=== PATIENT | male | born 1975 | race Caucasian/White ===

== ENCOUNTER 2018-05-23 18:08 | Emergency (ER) | payer SELFPAY ==
[~2018-05-23 18:08] MED LIST: ISOVUE-370 76%-LOCM 1 ML ONE
[2018-05-23 18:58] LABS: #Basophils 0.1 thou/uL (0.0-0.2); #Eosinphils 0.2 thou/uL (0.0-0.7); #Lymphocytes 1.4 thou/uL (1.20-3.40); #Monocytes 0.5 thou/uL (0.11-0.59); #Neutrophils 4.1 thou/uL (1.40-6.50); %Basophils 0.8 % (0.0-1.0); %Eosinophils 2.8 % (0.0-10.0); %Lymphocytes 22.8 % (21.0-51.0); %Monocytes 7.2 % (0.0-10.0); %Neutrophils 66.4 % (42.0-75.0); Hemoglobin 13.9 g/dL (14.0-18.0); Mean Corpuscular HGB CONC 33.7 g/dL (32.0-36.0); Mean Corpuscular Hemoglobin 29.8 pg (27.0-31.0); Mean Corpuscular Volume 88.3 fL (78.0-98.0); Mean Platelet Volume 6.5 fL (7.4-10.4); Platelet Count 227 thou/uL (130-400); RBC Distribution Width 12.5 % (11.5-14.5); Red Blood Cell (RBC) Count 4.65 mill/uL (4.70-6.10); White Blood Cell (WBC) Count 6.2 thou/uL (4.8-10.8)
[2018-05-23] MEDS ORDERED: Ondansetron PF 4 MG/2 ML Vial ONE (19:03)
[2018-05-23] MEDS ORDERED: Morphine 4 MG/ML VIAL ONE (19:03)
[2018-05-23 19:19] LABS: ALT (SGPT) 24 U/L (8-55); AST (SGOT) 28 U/L (5-34); Alkaline Phosphatase 89 U/L (40-150); Anion Gap 8 mmol/L (10-20); BUN (Urea Nitrogen) 15 mg/dL (8.9-20.6); Bilirubin, Total 0.4 mg/dL (0.2-1.2); Calc. Creatinine Clearance 0 mL/min (70-130); Calcium 9.4 mg/dL (7.8-10.44); Carbon Dioxide 29 mmol/L (22-29); Chloride 105 mmol/L (98-107); Estimated GFR-MDRD 77; Globulin 2.8 g/dL (2.4-3.5); Glucose 107 mg/dL (70-105); Protein, Total 6.8 g/dL (6.0-8.3); Sodium 138 mmol/L (136-145)
[2018-05-23] MEDS ORDERED: Acetaminophen 500 MG TAB ONE (19:25)
--- NOTE | 2018-05-23 20:23 | CT ---
CT BRAIN PERFORMED WITHOUT CONTRAST ENHANCEMENT: HISTORY: Head injury status post fall. FINDINGS: The ventricular and cisternal system is within normal limits. There are no signs of intracerebral he morrhage or extraaxial fluid collections. The mastoid air cells are clear. There is extensive mucos al disease in the right ethmoid and maxillary sinus and some changes within the right sphenoid sinus. IMPRESSION: No acute intracranial abnormalities. POS: [facility]
--- NOTE | 2018-05-23 20:25 | CT ---
CT CERVICAL SPINE PERFORMED WITHOUT CONTRAST ENHANCEMENT: HISTORY: Fall with neck injury. FINDINGS: Vertebral bodies are normal in height. Disk spaces all appear relatively well preserved with some mi nimal osteophytic change. The facets are in normal alignment. There is no evidence of any significa nt canal or foraminal stenosis. There is no CT evidence for fracture. The lung apices are clear. IMPRESSION: No CT evidence of fracture of the cervical spine. POS: [facility]
--- NOTE | 2018-05-23 20:43 | CT ---
CT CHEST AND ABDOMEN AND PELVIS AND THORACIC SPINE AND LUMBAR SPINE: 05/23/2018 HISTORY: Fall. Trauma. Pain. COMPARISON: None. TECHNIQUE: Axial CT imaging at 5 mm intervals, from the thoracic inlet through the pubic symphysis, with IV cont rast. Coronal and sagittal reformatted imaging of chest, abdomen, pelvis, thoracic spine, and lumbar spine obtained. FINDINGS: No axillary, hilar, or mediastinal adenopathy. No pleural, pericardial, or mediastinal fluid. Vascu lar structures of the chest appear patent. No pneumothorax on either side. The lung parenchyma demonstrates no acute abnormality on either side . There is a nodule in the middle lobe, on axial image 35, measuring approximately 4 mm. There is a pu lmonary nodule, measuring 3 mm, in the right lower lobe, on axial image 26. Review of the osseous structures of the chest demonstrate no displaced fracture. There is no free intraperitoneal air or fluid evident. The liver, gallbladder, spleen, pancreas, adrenal glands, and kidneys are unremarkable. Limited assessment of the bowel is grossly unremarkable. Vascular structures of the abdomen and pelvis appear patent with no lymphadenopathy noted in the abdo men or pelvis. Osseous structures of the abdomen and pelvis demonstrate a sclerotic lesion within the left iliac bon e, measuring 7 mm, likely representing a benign bone island, in the absence of known malignancy. Sim ilar sclerotic focus seen in the proximal left femur, on axial image 134. Dedicated CT examination of the thoracic spine demonstrates no acute fracture or dislocation. Dedica noah CT of the lumbar spine demonstrates no evidence for acute fracture or dislocation. There is an old anterior wedge compression fracture of the T8 vertebral body, which was noted on prio r CT examination of the thoracic spine, performed on 12/06/2005. IMPRESSION: Incidental findings as detailed above. No acute findings are seen. POS: [facility]
[2018-05-23] MEDS ORDERED: Ketorolac Tromethamine 30 MG/ML VIAL ONE (20:52)
== END 2018-05-23 21:12 | disposition home or self-care (01) ==
LOC: ERS 18:08
DX: S80.812A Abrasion, left lower leg, initial encounter (principal); S30.1XXA Contusion of abdominal wall, initial encounter; F17.210 Nicotine dependence, cigarettes, uncomplicated; W17.89XA Other fall from one level to another, initial encounter
CPT/HCPCS: 70450; 71260; 72125; 74177; 80053; 85025; 96361; 96374; J1885; J2270; J2405

== ENCOUNTER 2018-06-27 22:58 | Emergency (ER) | payer SELFPAY ==
[2018-06-27 23:46] LABS: #Basophils 0.1 thou/uL (0.0-0.2); #Eosinphils 0.2 thou/uL (0.0-0.7); #Lymphocytes 1.5 thou/uL (1.20-3.40); #Monocytes 0.5 thou/uL (0.11-0.59); #Neutrophils 3.6 thou/uL (1.40-6.50); %Basophils 1.3 % (0.0-1.0); %Eosinophils 2.9 % (0.0-10.0); %Lymphocytes 26.2 % (21.0-51.0); %Monocytes 8.4 % (0.0-10.0); %Neutrophils 61.2 % (42.0-75.0); Mean Corpuscular HGB CONC 33.6 g/dL (32.0-36.0); Mean Corpuscular Hemoglobin 29.4 pg (27.0-31.0); Mean Corpuscular Volume 87.7 fL (78.0-98.0); Mean Platelet Volume 6.4 fL (7.4-10.4); Platelet Count 201 thou/uL (130-400); RBC Distribution Width 12.4 % (11.5-14.5); Red Blood Cell (RBC) Count 5.11 mill/uL (4.70-6.10); White Blood Cell (WBC) Count 5.8 thou/uL (4.8-10.8)
--- NOTE | 2018-06-27 23:46 | RAD ---
CHEST ONE VIEW PORTABLE: HISTORY: A 43-year-old male with a history of chest pain. COMPARISON: 10/02/2015 FINDINGS: Heart size is within normal limits. Lungs are clear. No pneumonia, edema, pleural effusion, or othe r acute process. There is some nonspecific cortical irregularity of the medial proximal left humeral diaphysis, probably related to old trauma. IMPRESSION: No acute intrathoracic disease. POS: [facility]
[2018-06-28 00:09] LABS: ALT (SGPT) 32 U/L (8-55); AST (SGOT) 26 U/L (5-34); Alkaline Phosphatase 106 U/L (40-150); Anion Gap 14 mmol/L (10-20); BUN (Urea Nitrogen) 14 mg/dL (8.9-20.6); Bilirubin, Total 0.2 mg/dL (0.2-1.2); CK (CPK) 175 U/L (30-200); Calc. Creatinine Clearance 0 mL/min (70-130); Calcium 9.2 mg/dL (7.8-10.44); Carbon Dioxide 26 mmol/L (22-29); Chloride 105 mmol/L (98-107); Estimated GFR-MDRD 75; Glucose 103 mg/dL (70-105); Sodium 141 mmol/L (136-145)
[2018-06-28 00:15] LABS: Acetaminophen Less than 6.0 mcg/mL (10.0-30.0); Alcohol Less than 10 mg/dL (Less than 10); Salicylate Less than 8.0 mg/dL (15.0-30.0)
[2018-06-28 01:01] LABS: Amphetamine Detected (NotDetected); Barbiturates Screen Not Detected (NotDetected); Benzodiazepine Screen Not Detected (NotDetected); Cocaine Metabolite Screen Not Detected (NotDetected); Medtox Control Line Valid? VALID (VALID); Medtox Reader # READER 1; Methadone Not Detected (NotDetected); Methamphetamine Not Detected (NotDetected); Opiate Screen Not Detected (NotDetected); Oxycodone Screen Not Detected (NotDetected); Phencyclidine (PCP) Not Detected (NotDetected); THC/Cannabinoid Screen Not Detected (NotDetected); Tricyclic Screen Not Detected (NotDetected)
== END 2018-06-28 04:03 | disposition home or self-care (01) ==
LOC: ERS 22:58
DX: R07.2 Precordial pain (principal); F17.210 Nicotine dependence, cigarettes, uncomplicated; Z71.6 Tobacco abuse counseling
CPT/HCPCS: 36415; 71045; 80053; 80306; 80307; 82550; 84484; 85025; 93005; 94760; 99406

== ENCOUNTER 2018-09-04 15:56 | Emergency (ER) | payer SELFPAY ==
[2018-09-04] MEDS ORDERED: HYDROcodone/Acetaminophen 5/325 mg Tablet ONE (16:12)
--- NOTE | 2018-09-04 16:30 | RAD ---
LEFT INDEX FINGER THREE VIEWS: Indication: Finger injury with table saw. Comparison: None. FINDINGS: There is partial amputation of the distal tuft of the left index finger. There is soft tissue amputat ion of the distal tip of the left index finger. IMPRESSION: Partial traumatic amputation of the distal tuft of the left index finger. POS: [facility]
[2018-09-04] MEDS ORDERED: CEFAZOLIN 1 GM VIAL ONE ×2 (16:46→16:50)
[2018-09-04] MEDS ORDERED: Lidocaine 1% PF 5 ML VIAL ONE (16:48)
[2018-09-04] MEDS ORDERED: Water For Inject, Bacteriostat 30 ML ONE (16:51)
[2018-09-04] MEDS ORDERED: Sterile Water 10 ML ONE (16:53)
== END 2018-09-04 17:28 | disposition home or self-care (01) ==
LOC: ERS 15:56
DX: S68.121A Partial traumatic metacarpophalangeal amputation of left index finger, initial encounter (principal); F17.210 Nicotine dependence, cigarettes, uncomplicated; W27.0XXA Contact with workbench tool, initial encounter
CPT/HCPCS: 90471; 96372; A4216; J0690; J2001

== ENCOUNTER 2018-10-17 13:58 | Emergency (ER) | payer SELFPAY ==
[2018-10-17] MEDS ORDERED: ISOVUE-370 76%-LOCM 1 ML ONE (15:03)
--- NOTE | 2018-10-17 15:09 | RAD ---
RIGHT LEG 2 VIEWS: Date: 10/17/18 HISTORY: Injury, laceration right cruz, right leg pain. FINDINGS/IMPRESSION: The right tibia and fibula are intact. No radiopaque foreign body is seen. POS: [facility]
[2018-10-17] MEDS ORDERED: Ondansetron PF 4 MG/2 ML Vial ONE (15:15)
[2018-10-17] MEDS ORDERED: Morphine 4 MG/ML VIAL ONE (15:15)
--- NOTE | 2018-10-17 15:32 | CT ---
CT Brain WO Con: 10/17/2018 2:45 PM CLINICAL HISTORY: Injury, pain. COMPARISON: None. FINDINGS: Hemorrhage: None. Ventricular system: Normal in size and morphology for the patient's age. Cerebral parenchyma: Small hypodensity at the inferior right lentiform nucleus may relate to a periva scular space. Midline shift: None. Mass: No mass effect. Calvarium: Normal. Visualized Paranasal sinuses: Decreased pneumatization of right mastoid air cells. IMPRESSION: No acute intracranial abnormalities.
[2018-10-17] MEDS ORDERED: Lidocaine 1% w/Epinephrine 1:100K 20 ML VIAL ONE (15:38)
--- NOTE | 2018-10-17 15:43 | CT ---
CT CERVICAL SPINE WITH CORONAL AND SAGITTAL REFORMATIONS: HISTORY: A 43-year-old male with injury, neck pain. FINDINGS: Comparison is made with the exam of 05/23/2018. No fracture or subluxation is seen. No facet malalignment is identified. Vertebral body heights are maintained. POS: [facility]
--- NOTE | 2018-10-17 15:48 | CT ---
CT OF THE CHEST, ABDOMEN AND PELVIS WITH IV CONTRAST INDICATION: History of fall approximately 1658 with right lower leg injury COMPARISON: CT the chest abdomen and pelvis dated May 23, 2018 and December 06, 2005 FINDINGS: CHEST: Lungs:No focal contusion is evident. Sub-4 mm pulmonary nodules within the right upper lobe and right middle lobes are stable. Calcified granuloma the right lower lobe is stable. Heart and great vessels:No acute traumatic injury seen. Pleural space: No pneumothorax or effusion. Additional findings: ABDOMEN: Liver:Normal appearing. Adrenal glands: Normal appearing. Spleen:Normal appearing. Pancreas:Normal appearing. Kidneys:Normal appearing. Aorta:Normal appearing. Additional findings: No free fluid or free air. Pelvis: Bowel:Normal appearing. Bladder:Normal appearing. Reproductive structures:Normal appearing. Rectum and perirectal soft tissues:Normal appearing. Additional findings: No free fluid or free air. Osseous structures: T8 wedge compression fracture is stable. There is a stable bone island within the proximal left femur and left ilium. There is scattered degenerative and osteoarthritic changes. IMPRESSION: 1. No acute traumatic injury seen involving the chest, abdomen or pelvis. 2. No acute fracture or subluxation of the thoracic and lumbar spine is demonstrated. 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 3. Incidental findings as above.
== END 2018-10-17 16:44 | disposition home or self-care (01) ==
LOC: ERS 13:58
DX: S81.811A Laceration without foreign body, right lower leg, initial encounter (principal); F17.210 Nicotine dependence, cigarettes, uncomplicated; W18.30XA Fall on same level, unspecified, initial encounter
CPT/HCPCS: 12002; 70450; 71260; 72125; 74177; 96374; 96375; J2001; J2270; J2405; Q9966

== ENCOUNTER 2020-03-30 21:10 | Emergency (ER) | payer SELFPAY ==
[2020-03-30] MEDS ORDERED: Lidocaine 1% w/Epinephrine 1:100K 20 ML VIAL ONE (21:50)
[2020-03-30] MEDS ORDERED: HYDROcodone/Acetaminophen 5/325 mg Tablet ONE (21:50)
[2020-03-30] MEDS ORDERED: Bacitracin 1 PK ONE (22:20)
== END 2020-03-30 22:35 | disposition home or self-care (01) ==
LOC: ERS 21:10
DX: S61.512A Laceration without foreign body of left wrist, initial encounter (principal); F17.210 Nicotine dependence, cigarettes, uncomplicated; W29.0XXA Contact with powered kitchen appliance, initial encounter; Y93.G9 Activity, other involving cooking and grilling
CPT/HCPCS: 12002